=== PATIENT | male | born 1960 | race Caucasian/White ===

== ENCOUNTER 2017-11-21 06:01 | Inpatient (IN) | payer BC ==
[2017-11-16 09:28] LABS: ADD MAN DIFF? NO
[2017-11-16 09:46] LABS: WHITE BLOOD COUNT 6.3 10^3/ul (4.8-10.8)
[2017-11-16 09:46] LABS: BASOPHILS % 0.5 % (0.0-2.0); HEMATOCRIT 47.2 % (42.0-52.0); HEMOGLOBIN 16.3 g/dl (14.0-18.0); LYMPHOCYTES # 1.7 10^3/ul (0.8-2.9); LYMPHOCYTES % 26.4 % (15.0-51.0); MEAN CORPUSCULAR HGB CONC 34.5 g/dl (32.0-37.0); MEAN CORPUSCULAR VOLUME 89.9 fl (82.0-101.0); MEAN PLATELET VOLUME 9.5 fl (7.4-10.4); MONOCYTE # 0.6 10^3/ul (0.3-0.9); MONOCYTES % 8.8 % (0.0-11.0); PLATELET COUNT 300 10^3/UL (140-415); RED BLOOD COUNT 5.25 10^6/ul (4.70-6.10); RED CELL DISTRIBUTION WIDTH 13.4 % (11.5-14.5)
[2017-11-16 10:05] LABS: INR 0.92; PROTIME 12.4 Sec (11.9-14.9)
[2017-11-16 10:07] LABS: ALANINE AMINOTRANSFERASE 50 IU/L (13-69); ALBUMIN 4.6 g/dl (3.3-4.9); ALBUMIN/GLOBULIN RATIO 1.43; ALKALINE PHOSPHATASE 86 IU/L (42-121); ANION GAP 14 (8-16); ASPARTATE AMINO TRANSFERASE 27 IU/L (15-46); BILIRUBIN,INDIRECT 1.4 mg/dl (0-1.1); BILIRUBIN,TOTAL 1.4 mg/dl (0.2-1.3); BLOOD UREA NITROGEN 17 mg/dl (7-20); CALCIUM 9.4 mg/dl (8.4-10.2); CARBON DIOXIDE 26 mmol/L (21-31); CHLORIDE 106 mmol/L (97-110); CREATININE 0.95 mg/dl (0.61-1.24); GLUCOSE 90 mg/dl (70-220); POTASSIUM 4.4 mmol/L (3.5-5.1); SODIUM 142 mmol/L (135-144); TOTAL PROTEIN 7.8 g/dl (6.1-8.1)
[2017-11-21] MEDS ORDERED: LACTATED RINGER'S 1,000 ML IV* (06:30)
[2017-11-21] MEDS: CEFAZOLIN 2 GM/50 ML (PMX) 50 ML IVPB (06:30)
[2017-11-21] MEDS ORDERED: SUGAMMADEX SODIUM 200 MG/2 ML VIAL IV (07:00)
[2017-11-21] MEDS ORDERED: CEFAZOLIN 1 GM INJ (07:00)
[2017-11-21] MEDS ORDERED: LIDOCAINE 1% (MDV) 20 ML INJ (07:31)
[2017-11-21] MEDS ORDERED: SUCCINYLCHOLINE CHLORIDE 100 MG/5 ML SYG IV (07:31)
[2017-11-21] MEDS ORDERED: ROCURONIUM 50 MG INJ (07:31)
[2017-11-21] MEDS ORDERED: MIDAZOLAM 1 MG/ML 2 ML INJ (07:31)
[2017-11-21] MEDS ORDERED: PROPOFOL 40 ML (07:31)
[2017-11-21] MEDS ORDERED: PROVENTIL HFA 6.7GM INHALER (07:32)
[2017-11-21] MEDS ORDERED: EPHEDrine SULFATE 50 MG/5 ML SYG (07:36)
[2017-11-21] MEDS ORDERED: PHENYLephrine (100 MCG/ML) 5ML SYG (07:36)
[2017-11-21] MEDS ORDERED: DEXAMETHASONE 4 MG/ML 1 ML INJ (07:36)
[2017-11-21] MEDS ORDERED: ONDANSETRON 4 MG INJ (07:36)
[2017-11-21] MEDS: LIDOCAINE 1%/EPI 30 ML INJ (08:47)
[2017-11-21] MEDS: POLYMYXIN/BACITRACIN 1L IRRIG (09:46)
[2017-11-21] MEDS: THROMBIN 5000 UNIT VIAL (09:47)
[2017-11-21] MEDS: GELATIN SIZE 100 SPONGE (09:47)
[2017-11-21] MEDS: SOD CHLORIDE 0.45% 1,000 ML IV ×3 (12:50→22:50)
[2017-11-21] MEDS ORDERED: CEPASTAT LOZENGE MT (13:00)
[2017-11-21] MEDS ORDERED: BETHANECHOL 25 MG TAB PO (13:00)
[2017-11-21] MEDS ORDERED: NACL 0.9% 3 ML SYG IV (13:00)
[2017-11-21] MEDS ORDERED: DIAZEPAM 5 MG TAB PO (13:00)
[2017-11-21] MEDS ORDERED: NALOXONE (0.4 MG/ML) INJ IV (13:00)
[2017-11-21] MEDS ORDERED: ZOLPIDEM 5 MG TAB PO (13:00)
[2017-11-21] MEDS ORDERED: ONDANSETRON 4 MG INJ IV (13:00)
[2017-11-21] MEDS ORDERED: ACETAMINOPHEN 325 MG TAB PO (13:00)
[2017-11-21] MEDS ORDERED: HYDROmorphONE (0.2 MG/ML) 10ML SYG IV (13:30)
[2017-11-21] MEDS ORDERED: LABETALOL HCL 20MG INJ IV (13:30)
[2017-11-21] MEDS: HYDROmorphONE (0.2 MG/ML) 10ML SYG IV ×5 (13:35→14:26)
[2017-11-21] MEDS: morphine 1 MG/ML 30 ML (PCA) IV (13:43)
[2017-11-21] MEDS: CEFAZOLIN 1 GM/50 ML (PMX) 50 ML IVPB ×2 (18:29→23:20)
[2017-11-21] MEDS: DIPHENHYDRAMINE 50 MG CAP PO (23:10)
[2017-11-22] MEDS: morphine 1 MG/ML 30 ML (PCA) IV ×2 (01:26→06:32)
[2017-11-22] MEDS: CEFAZOLIN 1 GM/50 ML (PMX) 50 ML IVPB ×2 (06:26→12:55)
[2017-11-22 06:33] LABS: HEMATOCRIT 37.8 % (42.0-52.0); HEMOGLOBIN 12.6 g/dl (14.0-18.0)
[2017-11-22 06:49] LABS: ANION GAP 13 (8-16); BLOOD UREA NITROGEN 9 mg/dl (7-20); CALCIUM 8.4 mg/dl (8.4-10.2); CARBON DIOXIDE 29 mmol/L (21-31); CHLORIDE 104 mmol/L (97-110); CREATININE 0.75 mg/dl (0.61-1.24); GLUCOSE 121 mg/dl (70-220); POTASSIUM 3.8 mmol/L (3.5-5.1); SODIUM 142 mmol/L (135-144)
[2017-11-22] MEDS: SOD CHLORIDE 0.45% 1,000 ML IV ×2 (08:50→17:12)
[2017-11-22] MEDS: DOCUSATE SODIUM 100 MG CAP PO ×2 (08:59→20:50)
[2017-11-22] MEDS: FERROUS SULFATE (EC) 325 MG TAB PO ×3 (09:00→20:50)
[2017-11-22] MEDS: GABAPENTIN 400 MG CAP PO ×2 (09:00→20:50)
[2017-11-22] MEDS: BUPROPION (XL) 150 MG TAB PO (09:00)
[2017-11-22] MEDS: ACETAMINOPHEN 1000MG/100ML IV 100 ML IVPB ×3 (09:51→17:12)
[2017-11-22] MEDS: HYDROCODONE/APAP (5/325) TAB PO (17:14)
[2017-11-22] MEDS: MIRTAZAPINE 15 MG TAB PO (20:50)
[2017-11-23] MEDS: ACETAMINOPHEN 1000MG/100ML IV 100 ML IVPB ×3 (00:05→12:00)
[2017-11-23] MEDS: HYDROCODONE/APAP (5/325) TAB PO ×3 (01:41→12:48)
[2017-11-23] MEDS: FERROUS SULFATE (EC) 325 MG TAB PO ×2 (08:57→13:01)
[2017-11-23] MEDS: DOCUSATE SODIUM 100 MG CAP PO (08:58)
[2017-11-23] MEDS: BUPROPION (XL) 150 MG TAB PO (08:58)
[2017-11-23] MEDS: GABAPENTIN 400 MG CAP PO (08:59)
== END 2017-11-23 13:58 | disposition home or self-care (01) | DRG 472 ==
LOC: REC 06:01 → TEL 17:10
PROC: 0RG20A0 Fusion of 2 or more Cervical Vertebral Joints with Interbody Fusion Device, Anterior Approach, Anterior Column, Open Approach (ICD-10-PCS; principal; 2017-11-21 07:38)
PROC: 0RT30ZZ Resection of Cervical Vertebral Disc, Open Approach (ICD-10-PCS; 2017-11-21 07:38)
PROC: 0RP104Z Removal of Internal Fixation Device from Cervical Vertebral Joint, Open Approach (ICD-10-PCS; 2017-11-21 07:38)
DX: M50.123 Cervical disc disorder at C6-C7 level with radiculopathy (principal); M50.023 Cervical disc disorder at C6-C7 level with myelopathy; M48.02 Spinal stenosis, cervical region; M50.221 Other cervical disc displacement at C4-C5 level; F41.9 Anxiety disorder, unspecified; Z98.1 Arthrodesis status; Z87.891 Personal history of nicotine dependence
CPT/HCPCS: 71045; 80048; 80053; 85014; 85018; 85025; 85610; 85730; 86850; 86900; 86901; 87086; 88300; 88304; 93005; 97116; 97162

== ENCOUNTER 2018-04-05 07:02 | Emergency (ER) | payer BC ==
[2018-04-05] MEDS: KETOROLAC 60 MG INJ IM (07:42)
== END 2018-04-05 07:46 | disposition home or self-care (01) ==
LOC: FTE 07:02
DX: M54.2 Cervicalgia (principal)
CPT/HCPCS: 96372; 99284-25; J1885